=== PATIENT | female | born 1955 | race Caucasian/White ===

== ENCOUNTER 2021-10-17 16:13 | Inpatient (IN) | payer OTHER, BC ==
[~2021-10-17] VITALS: Ht 165.1 cm; Wt 69.6 kg
[2021-10-17 16:16] VITALS: BP 166/79
[2021-10-17 18:28] LABS: HEMOGLOBIN 17.8 gm/dL (12.0-15.0); MCH 29.8 pg (26.0-34.0); MCHC 32.3 g/dL (28.0-37.0); MCV 92.3 fL (80.0-100.0); PLATELET COUNT 267 thou/uL (150-400); RBC 5.97 mil/uL (4.20-5.00); RDW 14.3 % (10.5-14.5); WBC 21.8 thou/uL (4.0-11.0)
[2021-10-17 18:38] LABS: CALCIUM 9.6 mg/dL (8.5-10.1); POTASSIUM 4.2 mmol/L (3.5-5.1)
[2021-10-17 19:51] LABS: ABSOLUTE NEUTROPHILS 20.3 thou/uL (1.4-8.2); ATYPICAL LYMPHS 1 %
[2021-10-17 20:22] LABS: URINE BLOOD NEGATIVE (Negative); URINE CLARITY SL CLOUDY; URINE COLOR YELLOW; URINE GLUCOSE-RANDOM* NEGATIVE (Negative); URINE KETONES 1+ (Negative); URINE LEUKOCYTES-REFLEX NEGATIVE (Negative); URINE NITRITE-REFLEX NEGATIVE (Negative); URINE PROTEIN (DIPSTICK) 1+ (Negative); URINE UROBILINOGEN 0.2 E.U./dl (0.2-1.0)
[2021-10-17 20:34] LABS: ICTOTEST (BILI CONFIRMATORY) Negative (Negative); URINE BILIRUBIN NEGATIVE (Negative)
[2021-10-17 20:39] LABS: URINE RBC 1-2 Rare /HPF (NONE SEEN)
[2021-10-17 20:40] LABS: HYALINE CASTS 4-10 Moderate /LPF (None Seen); URINE WBC-REFLEX None Seen /HPF (0-5)
[2021-10-17 20:41] LABS: BACTERIA-REFLEX None Seen /HPF (None Seen); CRYSTALS None Seen /LPF (None Seen)
[2021-10-17 21:01] LABS: SQUAMOUS 0-3 Few /LPF (0-3)
[2021-10-17] MEDS ORDERED: PROTONIX40 M2 PO (21:13)
[2021-10-17] MEDS ORDERED: ASA81BEC PO (21:13)
[2021-10-17] MEDS ORDERED: NORVASC10 MG PO (21:14)
[2021-10-17] MEDS ORDERED: SENNA PLUS TAB1 EACH PO (21:15)
[2021-10-17] MEDS ORDERED: CLONAZEPAM 0.50.5 M1 PO (21:15)
[2021-10-17] MEDS ORDERED: NUPLAZID10 MG PO (21:18)
[2021-10-17] MEDS ORDERED: MELATONIN5 MG SUBLING (21:19)
[2021-10-17] MEDS ORDERED: MILK OF MA400 MG/5 M PO (21:19)
[2021-10-17] MEDS ORDERED: SERTRALINE HCL100 MG PO (21:20)
[2021-10-17] MEDS ORDERED: CARBIDOPA-LEVO1 EA10 PO (21:22)
[2021-10-17] MEDS ORDERED: BENZTROPINE ME0.5 MG PO (21:23)
[2021-10-17 23:11] LABS: CALCIUM 7.8 mg/dL (8.5-10.1); CREATININE 1.5 mg/dL (0.6-1.0); POTASSIUM 3.5 mmol/L (3.5-5.1)
[2021-10-17 23:26] LABS: CHOLESTEROL 216 mg/dL (<200); HDL CHOLESTEROL 41 mg/dL (>40); LDL CHOLESTEROL 145 mg/dL (<100); SERUM ASSESSMENT Clear; TC:HDL 5.3 Ratio (Not establshd); TRIGLYCERIDE 152 mg/dL (<150); VLDL 30 mg/dL (<40)
[2021-10-18 00:46] LABS: URINE CREATININE-RANDOM* 261.1 mg/dL; URINE SODIUM-RANDOM* <5 mmol/L
[2021-10-18 02:40] VITALS: BP 122/71
[2021-10-18 02:45] VITALS: BP 140/97
[2021-10-18] MEDS ORDERED: VITAMIN D32400 UNIT/ PO (03:01)
[2021-10-18] MEDS ORDERED: VITAMIN C500 M2 PO (03:03)
[2021-10-18] MEDS ORDERED: ZINC50 M1 PO (03:04)
[2021-10-18] MEDS ORDERED: NUEDEXTA 20-101 EACH PO (03:08)
[2021-10-18] MEDS ORDERED: NUPLAZID34 MG PO (03:10)
[2021-10-18] MEDS ORDERED: CLONAZEPAM 0.50.5 M1 PO (03:13)
[2021-10-18] MEDS ORDERED: SYSTANE 0.3-0.415 ML OPHTHALMIC (03:15)
[2021-10-18] MEDS ORDERED: MIRALAX17 GM PO (03:19)
[2021-10-18] MEDS ORDERED: CARBIDOPA-LEVO1 EAC8 PO (03:24)
[2021-10-18] MEDS ORDERED: ONDANSETRON HCL4 M2 PO (03:26)
--- NOTE | 2021-10-18 04:38 | NUR ---
PT ADMITTED TO ROOM 201 AT AROUND 0245, PT IS SLEEPING, NON-VERBAL, RESPONDS TO VERBAL COMMANDS, DOES NOT FOLLOW COMMANDS, DOES NOT APPEAR TO BE IN PAIN, ST 107, O2SATS 99 ON RA, ADMISSION ASESSMENT AND HX LIMITED D/T PTS CONDITION, MED REC COMPLETED, NO DISTRESS NOTED ON THE PT, WILL CONTINUE TO MONITOR PER POC
[2021-10-18 07:00] VITALS: BP 128/80
[2021-10-18 07:03] LABS: HEMATOCRIT 47.2 % (37.0-47.0); MCHC 32.7 g/dL (28.0-37.0); MCV 91.7 fL (80.0-100.0); RBC 5.15 mil/uL (4.20-5.00); RDW 13.7 % (10.5-14.5); WBC 12.3 thou/uL (4.0-11.0)
[2021-10-18 07:11] LABS: HEMOGLOBIN 15.5 gm/dL (12.0-15.0)
[2021-10-18 07:37] LABS: CALCIUM 8.7 mg/dL (8.5-10.1); CREATININE 1.3 mg/dL (0.6-1.0); POTASSIUM 3.5 mmol/L (3.5-5.1)
--- NOTE | 2021-10-18 08:44 | EKG ---
[address] [address] ELECTROCARDIOGRAM REPORT Name: FACUNDO ODEN Room #: 201-P ADM IN M.R.#: [id number] Admission: 10/17/21 Attend Phys: Ad Leahy MD Discharge: Date of : 55 Report #: [id number] [facility] ED Test Date: 2021-10-17 Test Time: 18:18:13 Pat Name: FACUNDO ODEN Department: Room: 201 Gender: F Contemporary Or Modern Dancer: rosalinda : 1955 Requested By: Zaid Middleton Order Number: [id number] MD: Gómez Duarte Measurements Intervals [place] Rate: 125 P: 52 LA: 127 QRS: 6 QRSD: 83 T: QT: 364 QTc: 525 Interpretive Statements Sinus tachycardia Left atrial enlargement Probable left ventricular hypertrophy Prolonged QT interval Baseline wander in lead(s) II,aVR,V4 No previous ECG available for comparison Electronically Signed On 10-18-2021 8:44:10 ACCESS TECH by Gómez Duarte [email or web address] <ELECTRONICALLY SIGNED> By: Gómez Duarte MD, [facility] 10/18/21 0844 17 17 Gómez Duarte MD, FACC /EPI
[2021-10-18 11:00] VITALS: BP 144/78
[2021-10-18 11:32] LABS: CALCIUM 8.5 mg/dL (8.5-10.1); CREATININE 1.2 mg/dL (0.6-1.0); POTASSIUM 3.9 mmol/L (3.5-5.1)
[2021-10-18 16:00] VITALS: BP 142/76
--- NOTE | 2021-10-18 16:38 | NUR ---
CM REVIEWED PT CHART AND DISCUSSED WITH CARE TEAM. AWAITING ELECTROLYTE BALANCE AND ADMISSION TO [facility]. CLINCIAL UPDATES FAXED TO [facility]. NO FURTHER CM INTERVENTIONS AT THIS TIME. WILL CONTINUE TO FOLLOW FOR DC PLANNING.
[2021-10-18 20:18] VITALS: BP 134/90
[2021-10-19 02:06] LABS: GLYCOHEMOGLOBIN (HGB A1C) 5.1 % (4.8-5.6)
[2021-10-19 03:09] VITALS: BP 134/63
[2021-10-19 03:44] LABS: CALCIUM 8.3 mg/dL (8.5-10.1); CREATININE 0.9 mg/dL (0.6-1.0); POTASSIUM 3.3 mmol/L (3.5-5.1)
--- NOTE | 2021-10-19 03:54 | NUR ---
assumed pt care at 1900, pt is non-verbal, follow simple commands, opens eyes brifly and would fall back to sleep, reassessment at around midnight, pt is able to voice her name and place, still confused, pt sleep, no attempts of climbing out of bed noted, iv fluids infusing as per orders, able to take po meds, no acute distress noted, will contine to monitor per poc
[2021-10-19 07:00] VITALS: BP 144/83
--- NOTE | 2021-10-19 09:42 | NUR ---
OBED SPOKE WITH KHUSHBU SIN PTS GUARDIAN THIS AM. SHE IS AWARE PT ADMISSION. HER PHONE IS [phone]. PLEASE NOTIFY KHUSHBU WHEN PT TRANSFERS TO [facility] UNIT.
[2021-10-19 11:00] VITALS: BP 127/73
--- NOTE | 2021-10-19 15:34 | NUR ---
SUCCESSFULLY TRANSPORTED PATIENT TO THE SHOWER TO BATHE. STOOD PATIENT UP FROM A SITTING POSITION IN THE BED. THE PATIENT WAS ABLE TO HOLD HER OWN BODY WEIGHT UP AND TAKE A FEW STAGGERING STEPS. FOOT DROP WAS SUSPECTED PREVIOUSLY, BUT THE PATIENT WAS ABLE TO FULLY FLEX HER FEET. THE PATIENT WAS TRANSFERRED TO A WHEELCHAIR AND THEN HELPED INTO THE SHOWER TO SIT ON A SHOWER CHAIR. THE PATIENT SAT ADEQUATELY BUT WOULD FREQUENTLY LEAN FORWARD AND REQUIRED MODERATE ASSISTANCE TO KEEP HER BACK IN THE CHAIR. THE TRANSPORT BACK WAS SIMILAR. THE PATIENT RESISTED GOING BACK TO BED AND HAD TO BE MANUALLY LIFTED AND PIVOTED TO THE BED FROM THE WHEELCHAIR.
[2021-10-19 16:00] VITALS: BP 101/56; BP 143/87
[2021-10-19 20:15] VITALS: BP 135/85
[2021-10-19 23:05] LABS: ABSOLUTE NEUTROPHILS 7.1 thou/uL (1.4-8.2); BASOPHILS 0.4 % (0.0-2.0); HEMATOCRIT 40.9 % (37.0-47.0); LYMPHOCYTES 13.1 % (24.0-44.0); MCH 29.9 pg (26.0-34.0); MCHC 33.2 g/dL (28.0-37.0); MCV 90.1 fL (80.0-100.0); MONOCYTES 7.9 % (1.0-8.0); PLATELET COUNT 128 thou/uL (150-400); POLYS 77.6 % (36.0-66.0); RBC 4.53 mil/uL (4.20-5.00); RDW 12.9 % (10.5-14.5); WBC 9.2 thou/uL (4.0-11.0)
[2021-10-19 23:11] LABS: HEMOGLOBIN 13.5 gm/dL (12.0-15.0)
--- NOTE | 2021-10-20 02:28 | NUR ---
SLEEPING WITHOUT COMPLAINTS. WORKING ON PLAN OF CARE FOR NOC. PROGRESSING TOWARDS TRANSFER TO [facility]. CONTINUE TO ASSES CLOSELY.
[2021-10-20 03:36] LABS: CALCIUM 7.8 mg/dL (8.5-10.1); CREATININE 0.8 mg/dL (0.6-1.0)
[2021-10-20 03:51] LABS: POTASSIUM 2.5 mmol/L (3.5-5.1)
[2021-10-20 04:45] VITALS: BP 133/79
[2021-10-20 08:00] VITALS: BP 135/76
[2021-10-20 12:00] VITALS: BP 120/73
[2021-10-20 15:51] VITALS: BP 115/72
[2021-10-20 19:10] VITALS: BP 119/74
[2021-10-21 03:02] LABS: HEMATOCRIT 42.9 % (37.0-47.0); HEMOGLOBIN 14.1 gm/dL (12.0-15.0); MCH 29.8 pg (26.0-34.0); MCHC 32.8 g/dL (28.0-37.0); MCV 90.9 fL (80.0-100.0); RBC 4.72 mil/uL (4.20-5.00); RDW 12.9 % (10.5-14.5); WBC 9.8 thou/uL (4.0-11.0)
[2021-10-21 03:32] LABS: CALCIUM 8.3 mg/dL (8.5-10.1); CREATININE 0.7 mg/dL (0.6-1.0); POTASSIUM 3.4 mmol/L (3.5-5.1)
[2021-10-21 04:45] VITALS: BP 118/78
[2021-10-21 08:23] VITALS: BP 123/73
[2021-10-21] MEDS ORDERED: DOXYCYCLINE HYC50 MG PO (08:42)
[2021-10-21] MEDS ORDERED: CLONAZEPAM 0.50.5 M1 PO (08:42)
[2021-10-21 12:08] VITALS: BP 119/58
== END 2021-10-21 13:42 | DRG 871 ==
LOC: ER 16:13 → 2N 22:40 → EROBS 22:40 → 2N 10-18 02:13
PROVIDERS: Internal Medicine; Nurse Practitioner Family; Student in an Organized Health Care Education/Training Program; ADMIT Hospitalist; ATTEND Hospitalist
DX: A41.9 Sepsis, unspecified organism (principal); J18.9 Pneumonia, unspecified organism; N17.0 Acute kidney failure with tubular necrosis; E87.0 Hyperosmolality and hypernatremia; F02.81 Dementia in other diseases classified elsewhere, unspecified severity, with behavioral disturbance; D72.829 Elevated white blood cell count, unspecified; Z20.822 Contact with and (suspected) exposure to COVID-19; E86.0 Dehydration; K21.9 Gastro-esophageal reflux disease without esophagitis; K59.00 Constipation, unspecified; G47.00 Insomnia, unspecified; F41.9 Anxiety disorder, unspecified; F25.1 Schizoaffective disorder, depressive type; I10 Essential (primary) hypertension; F29 Unspecified psychosis not due to a substance or known physiological condition; G20 Parkinson's disease; R41.0 Disorientation, unspecified; E87.6 Hypokalemia; D69.6 Thrombocytopenia, unspecified; Z80.1 Family history of malignant neoplasm of trachea, bronchus and lung; Z79.82 Long term (current) use of aspirin; Z79.899 Other long term (current) drug therapy
CPT/HCPCS: 10081

== ENCOUNTER 2021-10-21 11:25 | Inpatient (IN) | payer OTHER, BC ==
[~2021-10-21] VITALS: Ht 152.4 cm; Wt 66.8 kg
[~2021-10-21 11:25] MED LIST: ASA81BEC PO; BENZTROPINE ME0.5 MG PO; CARBIDOPA-LEVO1 EA10 PO; CARBIDOPA-LEVO1 EAC8 PO; CLONAZEPAM 0.50.5 M1 PO; DOXYCYCLINE HYC50 MG PO; MELATONIN5 MG SUBLING; MILK OF MA400 MG/5 M PO; MIRALAX17 GM PO; NORVASC10 MG PO; NUEDEXTA 20-101 EACH PO; NUPLAZID10 MG PO; NUPLAZID34 MG PO; ONDANSETRON HCL4 M2 PO; PROTONIX40 M2 PO; SENNA PLUS TAB1 EACH PO; SERTRALINE HCL100 MG PO; SYSTANE 0.3-0.415 ML OPHTHALMIC; VITAMIN C500 M2 PO; VITAMIN D32400 UNIT/ PO; ZINC50 M1 PO
[2021-10-21 14:28] VITALS: BP 118/65
--- NOTE | 2021-10-21 14:29 | NUR ---
ARRIVES TO FLOOR VIA WC ACCOMPNIED BY [facility] NURSING STAFF FROM ROOM 201. ADMITTED TO [address] [place] [address] 10/18 AFTER ARRIVING TO ER FROM [facility] WITH REPORTED INCREASE IN AGITATION AND ACTING OUT BEHAVIORS -PER [facility] NURSING NOTES HAS BEEN THROWING SELF ON FLOOR FROM WC-REFUSING MEDS AND CARES-DISROBING -DOCUMENTED THROWING SELF OUT OF WC ONTO FLOOR 1-2 TIMES DAILY FOR 2-3 WEEKS. WAS ADMITTED TO [address] [place] [address] FROM 10-18 TO 10-21 WITH TACHYCARDIA AND DEHYDRATION WITH HYPERNATREMAI. UPON ARRIVAL TO FLOOR PT DID STANF TO TRANSFER TOO BED WITH USE OF GAIT BELT AND SBA X 2 STAFF. ANGRY TENSE FACIAL EXPRESSION AND STATES "I DON'T KNOW WHERE WE ARE" AND A THEN "I DON'T LIKE IT"AFTER BEING ASSISTED TO BED ABD GIVEN FALLS INSTRUCTIONS HANDOUT AND VERBAL TEACHING AND 1-2 MINUTES LATER ASKS "DO YOU WANT ME TO GET UP ON MY OWN. GAIT IS UNSTEADY-PLACED ON HIGH FALLS PRECAUTIONS.
[2021-10-21 18:23] LABS: CHOLESTEROL 198 mg/dL (<200); HDL CHOLESTEROL 35 mg/dL (>40); LDL CHOLESTEROL 127 mg/dL (<100); TC:HDL 5.7 Ratio (Not establshd); TRIGLYCERIDE 182 mg/dL (<150); VLDL 36 mg/dL (<40)
[2021-10-21 19:30] VITALS: BP 131/75
[2021-10-21 20:14] VITALS: BP 131/75
--- NOTE | 2021-10-21 21:18 | NUR ---
Assumed care on 10/21/21 @ 1900, Taken from her room via zulma chair to the day room for VS and snack. Returned to bedroom and laid down in bed at her request.Transfer x1 staff memeber. Flat affect noted A&Ox2, not able to give name of hospital or reason for being in the hospital. Reoriented to place and purpose of hospitalization. Also not able to relay the date, but knows the president's name. VSS, compliant with medications in pudding. Cooperated with Assessment. HRRR, breath sounds CTA bilat, ABD N x 4Q. Bruises noted to upper extrimities. Bed in low position, bed alarm set, will continue to monitor for safety and comfort as per high fall unit protocol.
[2021-10-22 04:06] LABS: GLYCOHEMOGLOBIN (HGB A1C) 5.1 % (4.8-5.6)
[2021-10-22 08:37] VITALS: BP 129/71
[2021-10-22 11:47] VITALS: BP 129/71
--- NOTE | 2021-10-22 12:36 | NUR ---
RESUMMED CARE FROM OVERNIGHT SHIFT THIS AM, PATIENT IS IN DAY ROOM SITTING AT TABLE. PATIENT ALERT TO SELF ONLY PATIENT SPIT MEDICATION OUT THAT I CRUSHED IN APPLESAUCE. PATIENT WAS REFUSING TO EAT HER BREAKFAST SHE WOULD TAKE SIPS OF FLUIDS. PATIENT HAD VOMITING EPISODES WHEN I WAS IN TREATMENT TEAM. I CALLED DR CABRALES ABOUT THE PATIENT; SHE TOLD ME THE PATIENT WAS HAVING THE SAME BEHAVIORS OF REFUSING TO EAT. PATIENT DID EAT 100% OF HER LUNCH WITH ME FEEDING HER. PATIENT DENIES SI/HI/AH/VH AT PRESENT; PATIENTS ABDOMEN SOFT BOWEL SOUNDS PRESENT. PATIENTS LUNGS CLEAR PATIENT CALM QUIET PATIENT GIVEN A BATH TODAY. WILL CONTINUE TO MONITOR PATIENT FOR SAFETY AND BEHAVIORS.
--- NOTE | 2021-10-22 14:57 | NUR ---
New admit to [facility]. Noted pt came through ED on 10/17 for admit to [facility], but was found with electrolyte abnormalities that required medical management before she could be tx to [facility]. Amditted to [facility] last noc. Dx dementia, Parkinson's, HTN, MAYLIN, schizophrenia. ST assessed, puree diet recs r/t holding foods for extended periods without initiating a swallow and intermitent alertness. Intakes only poor to fair unless staff is feeding her, She took 100% lunch today for staff. Strict supervision recommended by ST, they are following. Add Ensure BID. Monitor weight and intake trends. Low nutrition risk at this time with staff feeding her.
[2021-10-22 19:30] VITALS: BP 111/37
[2021-10-22 19:57] VITALS: BP 128/65
[2021-10-22 20:01] VITALS: BP 111/37
--- NOTE | 2021-10-22 22:07 | NUR ---
Assumed care on 10/22/21, seated in zulma chair in the day room. Patient is non verbal, has taken her hospital ID bracelet off and is refusing medications. A new hospital bracelet is put on her ankle. Multiple attempts were made by the nurse to offer meds crushed in applesauce. Patient also refused meds from a second nurse. IM Lorazepam 1mg and Haldol 5mg were provided in the right deltoid which the patient tolerated well. Will continue to monitor for comfort and safety as per unit protocol.
[2021-10-23 07:49] VITALS: BP 144/75
--- NOTE | 2021-10-23 08:55 | H ---
[facility] [place] [address] HISTORY AND PHYSICAL Name: FACUNDO ODEN Room #: 521B-B ADM IN M.R.#: [id number] Admission: 10/21/21 Attend Phys: Mathieu Arce DO Discharge: Date of : 55 Report #: [id number] THIS REPORT FOR: cc: Renan Hinds MD, Ramilo MD Kerstein,Mathieu Smith DO ~ DATE OF SERVICE: 10/22/2021 INPATIENT PSYCHIATRIC EVALUATION SOURCES OF INFORMATION: A very brief interview with the patient, Emergency Room documentation, documentation from the [facility]. Of note, the patient is a very poor historian and thinks that the present day is [place]. CHIEF COMPLAINT: Unspecified. REASON FOR ORIGINAL ADMISSION: Throwing self against wall and onto floor, refusing medications x1 week. The patient appears to be a persaud of [facility]. HISTORY OF PRESENT ILLNESS: This is a 66-year-old female who was originally pegged to come to the [facility]; however, once she went through her medical clearance examination in the Emergency Room, she was found to have a couple of derangements including sodium 159, BUN 66, creatinine of 2, significant acute kidney injury necessitating a medical admission. On interview with her today, she was calm. She was eating her lunch, which was of pureed texture. When fed by nurse, she denied pain, denied complaints. She was unkempt. Information from the jail, her PCP is Dr. Renan Hinds. She has a longstanding history of schizoaffective disorder. In addition, her medical problems are noted for Parkinson's disease, dementia, with Parkinson's related dementia, dysphagia. She was positive for COVID on 10/03/2021, but she has gone through the quarantine. Her jail diagnostic list includes Parkinson's disease, schizoaffective disorder, unspecified dementia, difficulty walking, dysphagia, pseudobulbar affect, overactive bladder. Additional psychiatric history of unspecified anxiety disorder; major depressive disorder, recurrent, unspecified; other lack of coordination, muscle weakness, essential hypertension, history of COVID-19, and insomnia, gastroesophageal reflux disease. The patient was being prescribed Cogentin 0.5 mg twice a day related to Parkinson's disease. She also is getting Nuedexta at the jail due to pseudobulbar affect. That is a nonformulary medication here at [facility]. They have a note from the where they were trying to redirect the resident back to her room. She ___ to the floor. Resident got up again and the same thing. Dr. Hinds was notified and ordered intramuscular haloperidol. We do not have an exact date of admission for Dariela Sujatha ____ over three years at this point. In any event, [address] [address] HISTORY AND PHYSICAL Name: FACUNDO ODEN Room #: 521B-B ADM IN M.R.#: [id number] Admission: 10/21/21 Attend Phys: Mathieu Arce DO Discharge: Date of : 55 Report #: [id number] she has had a significant weight loss, which they tried to manage at jail. There is a physician's progress note from 10/08/[address] Hinds. The diagnoses are COVID-19, continue current care plan, continue medications, monitor for COVID symptoms. Since her jail medication list was reviewed during the medical admission, I am just going to jump to her current medications here at [facility]. She is on sertraline 100 mg oral daily, MiraLax 17 grams oral daily, clonazepam 0.5 mg oral daily, aspirin 81 mg oral daily, vitamin C 500 mg daily, Norvasc 10 mg p.o. daily. I have asked the hospitalist to re-evaluate that dose. Pantoprazole 40 mg oral daily, melatonin 5 mg oral at bedtime, doxycycline currently 100 mg oral b.i.d., carbidopa/levodopa 1 tab t.i.d., She is on 25/100 strength. Otherwise just house PRNs. LABORATORY DATA: Significant laboratories here at [facility] from 10/21/2021, white count 9.8, H and H 14.1 and 42.9, platelet count 128. Some mild thrombocytopenia. She had elevated segmented neutrophil percentage of 77.6 and a low lymphocyte percentage of 13.1. Other laboratories from 10/21/2021 sodium 142, potassium 3.4, chloride 103, bicarbonate 20, anion gap 12, BUN 10, creatinine 0.7, estimated GFR 84, glucose 78. A1c 5.1. Lactic acid 1.5 from the 10/17/2021. Calcium 8.3 on 10/21/2021, slightly low. Triglycerides 182, cholesterol 198, LDL 127, HDL 35. Procalcitonin from 10/17/2021 was 0.06. Urinalysis from 10/17/2021 showed 1+ protein, ketones, moderate hyaline casts. SARS COVID-19 was last tested from the 10/17/2021, but she was not positive. MICROBIOLOGY: This admission, there is a blood cultures done 10/17/2021 which is still read as preliminarily, no growth on 10/18/2021 or 10/19/2021. PHYSICAL EXAMINATION: VITAL SIGNS: Today, temperature 36.6, pulse 100, respirations 18, BP 129/71, O2 sat 97%. MUSCULOSKELETAL: Seated in a Josie chair. Unkempt appearance. It looks like she is still struggling. She is currently a FULL CODE. ALLERGIES: No known drug allergies. MENTAL STATUS EXAMINATION: Well-developed, unkempt-appearing female. Attention limited. Concentration very limited. Speech normal in rate. Thought process again linear, very limited. Thought content, fair poverty of thought. She denied suicidal or homicidal ideation, auditory or visual type hallucinations. She is only oriented to self. Memory was not formally tested. Insight and judgment impaired. Mood was okay. Affect was congruent, euthymic. She denied helplessness or hopelessness. [facility] [address] [place] [address] HISTORY AND PHYSICAL Name: FACUNDO ODEN Room #: 521B-B ADM IN M.R.#: [id number] Admission: 10/21/21 Attend Phys: Mathieu Arce DO Discharge: Date of : 55 Report #: [id number] IMAGING DATA: She did have a head CT on 10/17/2021 that showed no acute abnormalities, mild bifrontal cerebral volume loss -that can be seen with various deentias. FORMULATION: A 66-year-old female medically admitted for MAYLIN and electrolyte imbalance, now admitted to Geriatric Psychiatry for further evaluation of her behavioral symptoms that prompted her initial hospital appearance. DIAGNOSES: Major neurocognitive disorder, officially unspecified, but suspected Parkinson's related dementia with behavioral disturbance. The patient has quite a number of comorbidities including dysphagia, poor p.o. intake, dehydration, with recent hypernatremia, now resolved, pneumonia without hypoxia. She is on p.o. antibiotics. She has gastroesophageal reflux disease, recent COVID-19, Parkinson's disease and schizoaffective history. PLAN: Admitted via guardian to [facility] in [facility]. Evaluate, stabilize. Dr. Mccullough, hospitalist, is consulted. Regarding her psychiatric medications, I got word she was vomiting and spitting them out today. When I approached her during lunch, she actually ate well when fed off hand. I think it is reasonable to stop the daily clonazepam as I do not see a particularly good role for it. Her pneumonia diagnosis is still on the mild side, but we will defer management to Dr. Mccullough. Further plan, we will discontinue the Klonopin. We will see how the patient does in the next 1-2 days on her current regimen. I did discontinue that Cogentin already as I do not see a great use for that even if it was used for Parkinson's disease. strengths: insured, has placement weaknessess: advanced dementia, multiple morbidities Estimated length of stay 5-10 days. Review of systems are not feasible due to her poor condition. About 45 minutes spent on this case. <ELECTRONICALLY SIGNED> By: Mathieu Arce DO 10/23/21 0855 [id number] Mathieu Arce DO /nt
--- NOTE | 2021-10-23 12:08 | NUR ---
Alert and orientated to name and place. Denies SI/HI. Flat affect. Sitting in recliner in day room with peers. Spit out meds X 2 when crushed and mixed with pudding and applesauce. Held in mouth X 30 sec. Had just previously drank 4 oz of H2O without difficulty. Gave whole in ice cream on third attempt. Took all with exception of docycycline which she chewed and then spit out. Capsules opened and mixed in ice cream. Took without difficulty. Breath sounds clear. Reg HR auscultated. Color pink with brisk capillary refill and palpable peripheral pulses. Incontinent of large amt yellow urine in brief. Active bowel sounds over soft, rounded abdomen. Extremities stiff but less so than what was described in report. Able to bear wt when took to change but was fearful of falling.
[2021-10-23 19:30] VITALS: BP 117/77
[2021-10-23 20:09] VITALS: BP 117/77
--- NOTE | 2021-10-24 01:29 | NUR ---
Assumed care on 10/23/21 @ 1900, seated in zulma chair in the day room, chair alarm in place for high fall risk. Cooperated with assessment and compliant with medication administration, taking meds crushed in applesauce. Last BM noted on 10/21. Patient noted to have a flat affect, and is slow to verbally respond to conversation or questions. A&Ox3 oriented to self and can name Pamela as the president, gives the correct date, oriented to time. Retired to bed @ HS, x2 assist to transfer to bed. Bed in low position, bed alarm set. Will continue to monitor for safety and comfort as per unit protocol.
[2021-10-24 09:24] VITALS: BP 132/67
[2021-10-24 09:49] VITALS: BP 132/67
--- NOTE | 2021-10-24 11:21 | NUR ---
RESUMMED CARE FROM OVERNIGHT SHIFT THIS AM, PATIENT SITTING IN LEONOR CHAIR QUIET. PATIENT ATE BREAKFAST I CRUSHED MEDICATION IN APPLESAUCE SHE TRIED TO SPIT THE FIRST TEASPOON OUT. I REDIRECTED PATIENT TO SWALLOW THE APPESAUCE AND NOT SPIT THE MEDICATION OUT. SHE DID COMPLY AND I GAVE HER ORANGE JUICE TO WASH THE MEDICATON DOWN. PATIENT ALERT TO SELF AND SITUATION SHE DENIES SI/HI/AH/VH AT PRESENT. PATIENTS LUNGS CLEAR HER ABDOMEN SOFT BOWEL SOUNDS PRESENT. PATIENT CALM COOPERATIVE WILL CONTINUE TO MONITOR PATIENT FOR SAFETY AND BEHAVIORS.
[2021-10-24 19:29] VITALS: BP 101/59
--- NOTE | 2021-10-25 00:05 | NUR ---
At onset of shift superintendent pt was sitting in zulma chair in day room. Pt was sitting calmly, appeared depressed and sad. This shift pt was alert and oriented to self and was only off by 2 days when asked the date. Pt stated she was at a different hospital, but understands she's in a hospital. Pt stated she is at the hospital for depression and parkinsons. Pt denied SI, HI and AVH. RN administered pt's meds crushed in applesauce. Pt spit out the first bite of medications. RN offered pt a bite of meds followed by apple juice and pt spit out the applesauce and juice. Pt was able to eat regular applesauce not mixed with medication and drink regular apple juice. Pt stated she thinks she spits out meds due to "nerves." Pt was very unkempt, but was clothes were changed by staff and pt was placed into bed. Pt is a high fall risk. Fall precautions are in place. Will continue to monitor.
[2021-10-25 08:45] VITALS: BP 123/51
[2021-10-25 09:02] VITALS: BP 123/51
--- NOTE | 2021-10-25 14:04 | NUR ---
Assumed pt care from overnight shift this am. Client presented alert and oriented to self only, and would only look up when staff called her name. Client did not talk at this time, and would look away when staff asked questions. Client was uncooperative with medication pass and food, spitting out both food and medications several times and throwing water on staff as she spit it out. Client would then smile and turn head away. Staff used therapeutic communication and education to talk to client about importance of taking medication, but client continued to refuse, and spit out medication on staff again, not swallowing. Client was resistive to both the medication and to eating, though would drink water when left alone without issue. Client refused to answer any orientation questions at this time, and would not talk to staff. No stimuli noted, and no si/hi action present at this time. Lung sounds diminished but clear. Bowel sounds active. Informed Dr. Wilson of client's refusal of diet, and diet switched to pureed for client and ensure supplement added to meals. Dr. Arce informed of client spitting out medications and doxy and carbidopa dc at this time. Client continued to refuse medication and also spit out 1300 seroquel. No further changes at this time.
--- NOTE | 2021-10-25 17:19 | NUR ---
SELMA faxed updates to Dariela Solares
[2021-10-25 19:31] VITALS: BP 108/69
[2021-10-25 19:36] VITALS: BP 108/69
[2021-10-25 19:40] VITALS: BP 108/69
--- NOTE | 2021-10-25 20:45 | NUR ---
Continued pt care this evening for medication pass. Pt was in activity area during this time and was still resting in gerichair when medication pass was occuring. Pt was alert and oriented to self only during this time, and was more open with staff when staff asked orientation and mood questions. Pt presented fussy, but calm when asked, stating that she was "a little sad" and stating that she wanted to go home. When asked where home was, pt stated that it was her half-way. Pt was encouraged to express her feelings at this time, and pt education was provided with staff encouraging pt to take her medications in order to facilitate this, especially as pt expressed that she was having mild hallucinations when asked. Pt was educated about her seroquel at this time, and it's properties on helping with her psychosis. Pt nodded when staff stated this education. When asked if she had pain, pt nodded and stated yes and that it was general. Pt had been encouraged to take melatonin that was scheduled by this time, and staff asked pt if she would like tylenol. Pt nodded in agreement. Staff asked that pt not spit out tylenol and throw up on staff. Pt agreed. Pt did spit up medication once, but did take it, stating that she did not like the taste, but would take it since she was hurting. Pt voiced not knowing her last bm. Bowel sounds active. Lung sounds clear. Pt taken to bed after this. No further concerns at this time.
[2021-10-26 00:40] VITALS: BP 134/73
[2021-10-26 10:04] VITALS: BP 144/69
--- NOTE | 2021-10-26 11:20 | NUR ---
Alert and orientated X3. Flat affect. Takes meds in mouth without difficulty but then spits out. Compliant on 2nd pass of meds given seperately crushed in ice cream. Spit out ASA and Vitamin C. Poured iced tea over her head per stab setter and driller. Denies SI/HI. Breath sounds clear. Reg HR auscultated. Color pink with brisk capillary refill and palpable peripheral pulses. Incontinent of yellow urine. Active bowel sounds over soft, rounded abdomen. Took miralax without difficulty. Able to stand and bear wt with assistance. No attempts to ambulate.
[2021-10-26 12:13] LABS: CALCIUM 9.2 mg/dL (8.5-10.1); CREATININE 0.8 mg/dL (0.6-1.0)
[2021-10-26 12:14] LABS: POTASSIUM 3.8 mmol/L (3.5-5.1)
--- NOTE | 2021-10-26 17:18 | NUR ---
SELMA attempted to contact the PA Guardian. SELMA left a message requesting a call back. As of this note there has not been a returned call.
[2021-10-26 19:02] VITALS: BP 116/67
--- NOTE | 2021-10-26 22:17 | NUR ---
At onset of maintenance supervisor 2nd shift pt was sitting in zulma chair in day room. This shift pt was alert and oriented x2. Pt provided a date that was only 2 days off. Pt stated she was either at [facility] or [facility]. Pt was compliant with vital signs. Pt's only HS medication was melatonin. Pt refused the melatonin stating that she didn't think "I can get it down." Pt had food and spit up in her hair and down her shirt. Pt was cleaned up before going to bed. When speaking with RN, pt talked about her spitting out food; "they say I do it on purpose, but I'm not." Pt denied SI, HI and AVH. Pt is a high fall risk. Fall precautions are in place. Will continue to monitor.
--- NOTE | 2021-10-27 10:08 | NUR ---
Alert and orientated to person and time this AM. Denies SI/HI. Thought she was at [facility] or [facility]. Took meds crushed in applesauce. Became anxious between bites but was able to take deep breaths to calm herself and then swallow. Drank 440 cc of fluid. Affect slightly brighter this AM compared to yesterday. Breath sounds clear. Reg HR auscultated. Color pink with brisk capillary refill and palpable peripheral pulses. Brief dry this AM. Active bowel sounds over soft rounded abdomen. Able to stand and bear wt without difficulty but does not attempt any steps. Currenlty sleeping in recliner in dining room. No s/o distress.
[2021-10-27 11:02] VITALS: BP 132/55
[2021-10-27 19:02] VITALS: BP 121/58
--- NOTE | 2021-10-27 22:05 | NUR ---
At onset of security test engineer pt was sleeping in zulma chair in day room. This shift pt was alert and oriented to self. Pt provided the correct month and year. Pt knows she is in a hospital. Pt was able to swallow her medication crushed in applesauce. Pt stated that she wanted to try eating, so RN fed pt the applesauce. RN asked pt if she could feed herself and pt stated she could not. Pt stated her depression was worse and stated her anxiety was "awful." Pt denied SI and HI. When asked if she was hearing voices, pt stated that she has heard voices in the past, but had not heard any voices today. Pt appears unkempt. Pt is high fall risk. Fall precautions in place. Will continue to monitor.
[2021-10-28 09:13] VITALS: BP 120/48
[2021-10-28 09:20] VITALS: BP 120/48
--- NOTE | 2021-10-28 11:38 | NUR ---
Assumed pt care this am from overnight shift. Pt presented alert and oriented to self, situation, and time and was drowsy at this time. Pt was uncooperative with her medication, stating, "I can't do this" and spit out her medication even though her medication was crushed in apple sauce. Pt stated that she did not want to try to take her medication again if staff crushed it when staff asked. Pt endorsed depression, stating that she felt "sad" but did not elaborate at this time. No anxiety endorsed. Pt denied si/hi at this time. Pt also voiced hallucinations at this time, but did not elaborate on which type. Education given on medication during this time, as pt hadn't been taking her zoloft or seroquel regularly to help with mood. Pt voiced pain, but stated that she did not want any prn tylenol and would not take it. Pt would not state where pain was. Lung sounds were clear. Bowel sounds active. Last BM 10/27/21. Pt assisted with clean up after spitting up medications and toileted several times during shift. No further status changes at this time.
--- NOTE | 2021-10-28 16:37 | NUR ---
Updates faxed to Dariela youngblood
--- NOTE | 2021-10-28 17:21 | NUR ---
RT PROGRESS NOTE-- PT HAS BEEN ABOUT THE SAME (SLEEPING) MAJORITY OF THE DAY SINCE ADMISSION. NEONATAL SOCIAL WORKER WILL TRY TO ENCOURAGE TO STAY ALERT MORE ESPECIALLY DOIN GROUP TIMES.
[2021-10-28 19:30] VITALS: BP 146/95
[2021-10-28 19:33] VITALS: BP 146/95
--- NOTE | 2021-10-28 19:59 | NUR ---
Assumed care pm 10/28/20 @ 1900, seated in a zulma chair at a table watching football at the start of shift. Cooperated with assessment, HRRR, Lungs CTA bilat, ABD N x 4 Q over a round abdomen. Acknowledges a little bit of anxiety and depression, asking when she can go to bed. Reoriented that bed time is after snack and medicine and she agreeed to that time frame. Chair alarm set, will continue to monitor for safety and comfort as per unit protocol.
[2021-10-29 08:55] VITALS: BP 127/60
[2021-10-29 09:27] VITALS: BP 127/60
--- NOTE | 2021-10-29 09:37 | NUR ---
RESUMMED CARE FROM OVERNIGHT SHIFT THIS AM, PATIENT SITTING IN DAY ROOM QUIET. PATIENT ALERT ORIENTED TO SELF ONLY, PATIENT SPIT MEDICATION CRUSHED IN YOGART. SHE WAS DOING FINE THE LAST FEW DAYS AND NOW HAS REVERTED BACK TO SPITTING OUT MEDICATION. PATIENT DENIES SI/HI/AH/VH AT PRESENT PATIENTS ABDOMEN SOFT BOWEL SOUNDS PRESENT. PATIENTS LUNGS CLEAR PATIENT CALM COOPERATIVE. WILL CONTINUE TO MONITOR PATIENT FOR SAFETY AND BEHAVIORS.
--- NOTE | 2021-10-29 10:27 | NUR ---
Nutrition followup: Pt continues on [facility] unit with dementia, Parkinsons, HTN, MAYLIN, schizophrenia. Pureed diet continues with ST following. Staff assist with intake and pt is eating well, 75-100% of meals documented, 100% of ensure supplements. BM 10/27. On miralax, vitamin C. Weight ~stable on unit. Low risk.
--- NOTE | 2021-10-29 16:01 | NUR ---
SELMA spoke with Cat, [facility], concerning dicharge of Pt. Discharge was set for 10/30/2021 @ 1030. [facility] SELMA also spoke with the Pt's PA Guardian concerning this discharge.
--- NOTE | 2021-10-29 19:18 | NUR ---
Assumed care on 10/29/21 @ 1900, seated in a zulma chair at a table in the day room. Calm and cooperative with assessment, HRRR, lung sounds cta bilat, abd N x4Q. A&Ox2 to self and situation. Will continue to monitor for comfort and safety as per unit protocol, high fall risk and chair alarm in place.
[2021-10-29 19:30] VITALS: BP 123/67
[2021-10-29 19:53] VITALS: BP 123/67
[2021-10-30] MEDS ORDERED: MIRALAX17 GM PO (09:01)
[2021-10-30] MEDS ORDERED: SEROQUEL XR50 MG PO (09:01)
[2021-10-30 09:03] VITALS: BP 127/61
--- NOTE | 2021-10-30 10:05 | NUR ---
Alert and orientated X3. Only speaks when asked questions. States she is ready for discharge to [facility]. Denies SI/HI. Able to stand with minimal assistance. Breath sounds clear. Reg HR auscultated. Color pink with brisk capillary refill and palpable peripheral pulses. Incontinent of large amt yellow urine. Active bowel sounds over soft, rounded abdomen. Changed into clothes for discharge. Took meds without difficulty, crushed and placed in pudding. Report called to [facility] to Darcy Yip. Called [facility] Public Internal Recruiter. Spoke with Madie Crabtree deputy to [facility]. Gave consent to transfer to [facility]. Requested discharge documents to be sent to their office. Faxed per request.
--- NOTE | 2021-11-01 09:06 | D ---
[facility] [place] [address] DISCHARGE SUMMARY Name: FACUNDO ODEN Room #: 522A-A [facility] IN M.R.#: [id number] Admission: 10/21/21 Attend Phys: Mathieu Arce DO Discharge: 10/30/21 Date of : 55 Report #: [id number] THIS REPORT FOR: cc: Renan Hinds MD, Ramilo MD Kerstein,Mathieu Smith DO ~ DATE OF SERVICE: 10/30/2021 INPATIENT PSYCHIATRIC DISCHARGE SUMMARY ATTENDING PSYCHIATRIST: Mathieu Arce DO PAPER PROCESSING MACHINE HELPER: Zac Wilson MD DISCHARGE DIAGNOSES: Schizoaffective disorder, unspecified. Medical comorbidities are as follows: Dysphagia, poor intake, recent history of dehydration with hyponatremia, which was resolved; pneumonia without hypoxia, p.o. antibiotics completed; gastroesophageal reflux disease; recent COVID-19 infection; reported Parkinson's disease. Of note, the patient has been refusing Sinemet. She was on low dose, so that was discontinued. DISCHARGE MEDICATIONS: Aspirin 81 mg oral daily for heart protection, pantoprazole 40 mg oral daily for GERD and GI prophylaxis, amlodipine 10 mg oral daily for hypertension, melatonin 5 mg sublingual orally at bedtime for sleep, sertraline 100 mg oral daily for depression and schizoaffective illness, cholecalciferol 1000 international units oral twice daily, vitamin C 500 mg oral daily, Zofran 4 mg oral 8 hours p.r.n. for nausea, Seroquel XR 150 mg oral daily as mood stabilizer, MiraLax 17 grams oral daily for bowel motility. DISPOSITION: The patient is discharging back to [facility], which was the nursing facility she originated out of. 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 DIET: Regular, consistency is mechanical soft. She could have thin liquids. She has required some assisted feedings. She seems to selectively feed herself as well as selectively refuse medication. Some assistance with bathing. No wound care needed at time of discharge. LABORATORY DATA: Hematology: White count 9.8, H and H 14.1 and 42.9, platelet count 128. Chemistries: Sodium 138, this was done on 10/26/2021. Potassium 3.8, chloride 97, bicarbonate 32, anion gap 9, BUN 17, creatinine 0.8, estimated GFR 72, glucose 97. A1c 5.1. Lactic acid 1.5, calcium 9.2. Triglycerides 182, cholesterol 198, LDL 127, HDL 35. REASON FOR ADMISSION: The patient was initially admitted medically due to acute kidney injury, hyponatremia, leukocytosis. She had been medically screened in [address] [address] DISCHARGE SUMMARY Name: FACUNDO ODEN Room #: 522A-A [facility] IN M.R.#: [id number] Admission: 10/21/21 Attend Phys: Mathieu Arce DO Discharge: 10/30/21 Date of : 55 Report #: [id number] the ER and was found to have patchy non-consolidative infiltrates in her lungs as well. Dr. Walter had done a psychiatric consultation on the medical floor, and the patient was difficult to interview, felt to have delirium on top of schizoaffective disorder. Apparently at the facility, she had stopped taking her medications a few weeks ago. She has been throwing herself out of the chair, throwing herself into chamberlain since, there was visible bruising. HOSPITAL COURSE: The patient was admitted to Geriatric Psychiatry Unit. The patient was challenging as she was uncooperative with medications. I discontinued Sinemet during her stay as well as discontinuing benzodiazepines and Cogentin during her stay. The patient was surprisingly oriented. It was difficult to flush reasons out her for her resistance to things. Contact was made with her guardian who felt she could be handled at [facility]. I did not think there was a good reason in her state as she is currently having a chronic psychiatric disability and functional loss for her to go to a level 2 facility. At this time, the patient is pretty much in a palliative state. As long as she is eating and not harming herself at her age of 66, I think it is the best we can do. PHYSICAL EXAMINATION: VITAL SIGNS: On day of discharge are as follows: Temperature 36.0, pulse 83, respirations 17, BP 127/61, O2 sat 95%. MUSCULOSKELETAL: Largely nonambulatory in a Josie chair. Interestingly made some complaints about the weight she has gained. Encouraged her to pursue exercise in recreation therapy at alf. MENTAL STATUS EXAMINATION: Well-developed, ill-appearing female, appearing roughly stated age. Attention fair. Concentration fair to limited. Speech soft, somewhat slowed. Thought process: Linear, limited, perhaps blocking at times. Thought content: Fair poverty. Denied suicidal ideation, homicidal ideation, auditory, visual, or tactile hallucinations. Denied hopelessness, helplessness. Mood and affect were constricted, congruent. Memory not formally tested. Insight and judgment impaired. Fund of knowledge difficult to gauge but average would be my best assessment. PROGNOSIS: For this patient is guarded given her poor compliance and difficulty to engage in therapeutic interactions. <ELECTRONICALLY SIGNED> By: Mathieu Arce DO 11/01/21 [id number] Mathieu Arce DO /nt
== END 2021-10-30 10:35 | DRG 885 ==
LOC: SBH 11:25
PROVIDERS: Hospitalist; Nurse Practitioner Psychiatric/Mental Health; ADMIT Psychiatry & Neurology Psychiatry; ATTEND Psychiatry & Neurology Psychiatry
DX: F25.1 Schizoaffective disorder, depressive type (principal); J18.9 Pneumonia, unspecified organism; F03.91 Unspecified dementia, unspecified severity, with behavioral disturbance; E87.0 Hyperosmolality and hypernatremia; Z79.899 Other long term (current) drug therapy; Z20.822 Contact with and (suspected) exposure to COVID-19; F01.50 Vascular dementia, unspecified severity, without behavioral disturbance, psychotic disturbance, mood disturbance, and anxiety; K21.9 Gastro-esophageal reflux disease without esophagitis; F41.9 Anxiety disorder, unspecified; K59.00 Constipation, unspecified; G47.00 Insomnia, unspecified; I10 Essential (primary) hypertension; R13.10 Dysphagia, unspecified; E86.0 Dehydration; Z79.82 Long term (current) use of aspirin
CPT/HCPCS: 10880